=== PATIENT | male | born 1940 | race Caucasian/White ===

== ENCOUNTER → 2019-03-01 | Outpatient (CLI) | payer MEDICARE, BC ==
[2019-03-01 08:42] LABS: CREATININE 1.1 mg/dL (0.6-1.3)
== END ==
LOC: M.LAB 08:00 → M.CT 09:30
PROVIDERS: Nurse Practitioner Adult Health
DX: K80.20 Calculus of gallbladder without cholecystitis without obstruction (principal); K40.90 Unilateral inguinal hernia, without obstruction or gangrene, not specified as recurrent; K57.90 Diverticulosis of intestine, part unspecified, without perforation or abscess without bleeding; R14.0 Abdominal distension (gaseous)

== ENCOUNTER → 2019-06-03 | Outpatient (CLI) | payer MEDICARE, BC ==
[~2019-06-03] MED LIST: TYLENOL PO
--- NOTE | 2019-07-07 16:39 | PAINCON ---
[address] [address] PAIN MANAGEMENT CONSULTATION Name: SUSAN PATEL Room: [facility].#: [id number] Admission: 06/03/19 Attend Phys: Vandana Galeano MD Discharge: Date of : 40 Report #: [id number] THIS REPORT FOR: //name// CC: Osvaldo Napoles DATE OF SERVICE: 06/03/2019 CHIEF COMPLAINT: Pain in the low back that travels down both legs to the knee and down into the foot. HISTORY: The patient is a 78-year-old gentleman who has been referred to the Pain Clinic for evaluation of back and leg pain. The patient noted pain, which has been problematic for a number of years. He has been experiencing increasing pain in the lower portion of his back. Pain is exacerbated by walking as well as standing. Notes that his pain improves somewhat when he sits down. He has found improvement after taking a hot bath. Does note some improvement when he uses stretching machine as well as when he exercises. He describes it as throbbing, sharp, shooting pain, which causes cramping, aching, and pulling. He rates it as a 6/10 today. He has not had back surgery. He has perceived weakness in his legs. ALLERGIES: No known drug allergies. CURRENT MEDICATIONS: Tylenol 600 mg p.r.n. PAST MEDICAL HISTORY: Stomach problems, joint disease/arthritis. PAST SURGICAL HISTORY: The patient has not had surgery. SOCIAL HISTORY: He is retired. REVIEW OF SYSTEMS: Generally good health, earaches, chronic sinus problems, shortness of breath, joint pain, weakness of muscles, and back pain. LABORATORY DATA: MRI of the lumbar spine dated, 06/05/2001. IMPRESSION: Prominent degenerative changes at multiple lumbar levels. Prominent annular bulging of the disk demonstrated at L4-L5 with some resulting in compromise of the thecal sac and mild compromise of the neural foramen. PAIN CLINIC ASSESSMENT/PQRS: 1. History of osteoarthritis. The patient has some osteoarthritic changes in his low back area. He is not being treated for rheumatoid arthritis. 2. Height 5 feet 11 inches, weight 181 pounds, and BMI is 25.4[place] [address] PAIN MANAGEMENT CONSULTATION Name: SUSAN PATEL Room: [facility]#: [id number] Admission: 06/03/19 Attend Phys: Vandana Galeano MD Discharge: Date of : 40 Report #: [id number] 3. Vital signs: Blood pressure 130/64, heart rate 76, respiratory rate 16, room air saturation 94%, and temperature 97.9. 4. Pain intensity, 11/23. 5. Fall risk. The patient has not fallen in the last 3 months. 6. Blood thinner. The patient is not on a blood thinning medication. 7. Hypertension. The patient is not being treated for hypertension. 8. Opioids greater than 6 weeks. The patient is not receiving an opioid medication. 9. Risk assessment tool, low for opioids. 10. Functional assessment tool, 33/70. PHYSICAL EXAMINATION: GENERAL: The patient is a well-developed, well-nourished white male. Appears his stated age. He is alert and oriented x 3. His affect is appropriate. Speech is fluent. HEENT: Normocephalic, atraumatic. Extraocular eye muscles intact. Sclerae nonicteric. Mucous membranes moist. NECK: Without adenopathy. HEART: Regular rate. ABDOMEN: Nontender. LUNGS: Generally clear to auscultation. MUSCULOSKELETAL: The patient is without significant scoliosis, kyphosis or lordosis. The patient has pain and discomfort in lower portion of his back. Has pain that is radiating down into the left and right leg. It involves the L5-S1 dermatomal distribution. IMPRESSION: Lumbar radiculopathy, L4-L5 dermatomal distribution with bilateral pain. RECOMMENDATIONS: We discussed treatment options with the patient. Risks and benefits of an epidural steroid injection were discussed. Possible complications of the procedure, which could include but are not limited to infection, worsening pain, no improvement in pain, increased nerve damage and the patient elects to proceed. PROCEDURE NOTE: The patient was taken to the procedure area. He was then assisted in getting on examination table. His back was sterilely prepped with a Betadine solution. A 0.25% bupivacaine was infiltrated at the L5-S1 area. After this area had been anesthetized, a 17-gauge Tuohy with loss of resistance technique was used to gain access to the epidural space. A total of 80 mg Depo-Medrol, 40 mg triamcinolone and 2 mL of 0.25% bupivacaine was injected. The patient tolerated the procedure well. There were no complications. He remained in the pain clinic for an appropriate amount of time. He will follow up in [place] [address] PAIN MANAGEMENT CONSULTATION Name: SUSAN PATEL Room: [facility]#: [id number] Admission: 06/03/19 Attend Phys: Vandana Galeano MD Discharge: Date of : 40 Report #: [id number] We would like to thank you for letting us participate in his care. We hope he continues to improve. <ELECTRONICALLY SIGNED> By: Vandana Galeano MD 07/07/19 1639 1342 2215N. Jamil Galeano MD /nt
== END | disposition home or self-care (01) ==
LOC: M.PC 04:46
DX: M54.16 Radiculopathy, lumbar region (principal); M19.90 Unspecified osteoarthritis, unspecified site; Z79.899 Other long term (current) drug therapy

== ENCOUNTER 2019-07-29 09:22 | Inpatient (IN) | payer MEDICARE, BC ==
[~2019-07-29] VITALS: Ht 154.9 cm; Wt 83.2 kg
[2019-07-29 09:22] VITALS: BP 85/63
[2019-07-29 09:45] LABS: BE -14.1 mmol/L (-2 to +3); PCO2 27.8 mmHg (35.0-45.0)
[2019-07-29 09:46] LABS: ABSOLUTE BASOPHILS 0.1 thou/uL (0.0-0.2); ABSOLUTE EOSINOPHILS 0.3 thou/uL (0.0-0.7); ABSOLUTE LYMPHOCYTES 4.8 thou/uL (0.8-5.3); ABSOLUTE MONOCYTES 0.6 thou/uL (0.0-1.2); ABSOLUTE NEUTROPHILS 5.4 thou/uL (1.6-8.1); BASOPHILS 1.1 %; EOSINOPHILS 2.4 %; HEMATOCRIT 43.1 % (42.0-52.0); HEMOGLOBIN 14.5 gm/dL (14.0-18.0); LYMPHOCYTES 42.8 %; MCH 30.9 pg (26.0-34.0); MCHC 33.7 g/dL (28.0-37.0); MCV 91.9 fL (80.0-100.0); MONOCYTES 5.4 %; MPV 8.2 fl. (7.2-11.1); NUCLEATED RBCS 0 /100WBC; PLATELET COUNT* 178 thou/uL (150-400); POLYS 48.3 %; RDW-CV 14.4 % (10.5-14.5); WBC 11.2 thou/uL (4.0-11.0)
[2019-07-29 09:47] LABS: PO2 > 488.8 mmHg (75.0-100.0)
[2019-07-29 10:11] LABS: ALBUMIN 3.3 g/dL (3.4-5.0); CALCIUM 8.5 mg/dL (8.5-10.1); CREATININE 1.7 mg/dL (0.6-1.3); POTASSIUM 3.9 mmol/L (3.5-5.1); TOTAL BILIRUBIN 0.7 mg/dL (<0.1-1.0); TOTAL PROTEIN 7.3 g/dL (6.4-8.2)
[2019-07-29 10:12] LABS: INR 1.1; PROTIME 11.3 Seconds (9.20-11.50)
[2019-07-29 10:16] LABS: ALCOHOL < 10 mg/dL (<10); SALICYLATE < 2.8 mg/dL (2.8-20.0)
[2019-07-29 10:39] LABS: INFLUENZA A ANTIGEN Negative (Negative); INFLUENZA B ANTIGEN Negative (Negative)
--- NOTE | 2019-07-29 11:21 | EKG ---
[place] [address] ELECTROCARDIOGRAM REPORT Name: SUSAN PATEL Room: [facility]#: [id number] Admission: 07/29/19 Attend Phys: Discharge: Date of : 40 Date of Service: 07/29/19 0934 Report #: [id number] THIS REPORT FOR: cc: Osvaldo Mattson Bradley L. DO Holkins, John M. 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[facility] : 1940 Requested By: Susan Craven Order Number: [id number] MD: Bruce Snider Measurements Intervals [place] Rate: 111 P: 0 [place]: 108 QRS: 64 QRSD: 137 T: 23 QT: 456 QTc: 620 Interpretive Statements Sinus tachycardia Right bundle branch block No previous ECG available for comparison Electronically Signed On 07-29-2019 11:20:48 STEREOPTIC PROJECTION TOPOGRAPHER by Bruce Snider [email or web address] <ELECTRONICALLY SIGNED> By: Bruce Snider MD, [facility] 07/29/19 1120 0934 0934 Bruce Snider MD, [facility] /EPI
[2019-07-29 14:54] VITALS: BP 88/61
[2019-07-29 16:39] VITALS: BP 91/64
[2019-07-29 17:00] VITALS: BP 99/65
[2019-07-29 18:00] VITALS: BP 95/66
[2019-07-29 20:34] VITALS: BP 103/65
[2019-07-30] VITALS (11 sets, daily range): BP systolic 93–125; BP diastolic 58–74
--- NOTE | 2019-07-30 07:42 | CON ---
[facility] [address] [place] [address] CONSULTATION Name: SUSAN PATEL Room: [address] ADM IN M.R.#: [id number] Admission: 07/29/19 Attend Phys: Paula Hayward Discharge: Date of : 40 Report #: [id number] THIS REPORT FOR: //name// cc: Osvaldo Mattson Bradley L. DO ~ THIS REPORT FOR: //name// CC: Osvaldo Reynolds DATE OF SERVICE: 07/29/2019 CARDIOLOGY CONSULTATION INDICATION: Elevated troponin. HISTORY OF PRESENT ILLNESS: The patient is a very pleasant 78-year-old gentleman with no prior significant cardiac history. He was admitted to the hospital with complaints of acute shortness of breath and found to have a pulmonary embolus. In this setting has elevated troponin, likely due to cardiac strain. He denies any prior cardiac history. Essentially, he is a fairly healthy 78-year-old. There is no prior history of blood clots. He denies any history of hypertension, diabetes or family history of coronary artery disease. He reports borderline hyperlipidemia. He does not take any pharmaceutical medications. He takes quite a few supplements. He has not been on any long trips, plane rides or car trips. He reports some slight swelling of both lower extremities, left greater than right. He denies any pain in his legs. He reports this morning having acute shortness of breath. He was transported by EMS to the hospital and stabilized in the Emergency Room. A PE protocol CTA of the chest was obtained after he was noted to have an elevated D-dimer. This showed extensive pulmonary emboli and right heart strain. PAST MEDICAL HISTORY: Eye surgery remotely. MEDICATIONS: No pharmaceuticals currently. ALLERGIES: None documented. FAMILY HISTORY: Noncontributory. SOCIAL HISTORY: The patient is a lifelong nonsmoker. He does not drink alcohol. PHYSICAL EXAMINATION: [place] [address] CONSULTATION Name: SUSAN PATEL Room: [address] [facility]#: [id number] Admission: 07/29/19 Attend Phys: Paula Hayward Discharge: Date of : 40 Report #: [id number] VITAL SIGNS: Blood pressure 88/61, pulse of 105 and regular. GENERAL: This is a pleasant elderly gentleman who does not appear to be in any distress. Mood and affect appropriate. HEENT: Extraocular muscles intact. Mucous membranes moist. NECK: Shows no jugular venous distention. There are no carotid bruits. CHEST: Reveals clear lung bledsoe. CARDIOVASCULAR: Reveals a regular rhythm. I do not appreciate gallop or murmur. ABDOMEN: Reveals normal bowel sounds. The abdomen is soft, nontender. EXTREMITIES: Shows trace ankle edema bilaterally. There is no calf tenderness. SKIN: Dry. LABORATORY DATA: A 12-lead EKG shows sinus tachycardia with right bundle branch block. I do not appreciate acute ST or T-wave abnormality. CTA as outlined above shows extensive pulmonary emboli. Chest x-ray showed no acute cardiopulmonary process. Labs are evaluated. Electrolytes are within normal limits. BUN 18, creatinine 1.7, serum glucose 334. LFTs within normal limits. Troponin initially 0.19, subsequently 0.95 and 2.42. NT-proBNP 91. Coags within normal limits. White blood cell count 11.2, hemoglobin 14.5, platelet count 178,000. IMPRESSION AND RECOMMENDATIONS: 1. Extensive pulmonary emboli. The patient has currently been placed on Lovenox 1 mg subcutaneous b.i.d. Would transition to oral anticoagulant in the next day or so. Would recommend continuous anticoagulation for the next 3-6 months. At this time, the patient has had no prior episode of clotting. Further evaluation, likely not necessary. We will obtain echocardiogram to evaluate underlying cardiac structure and function. 2. Acute respiratory failure secondary to pulmonary emboli. 3. Elevated troponin secondary to heart strain consistent with a type 2 myocardial infarction. Consider outpatient stress testing once the patient has recovered from his pulmonary emboli. Echocardiogram ordered and pending. <ELECTRONICALLY SIGNED> By: Ata Cunningham MD, FACC 07/30/19 0742 1733 0508Ata Cunningham MD, FACC /nt
[2019-07-30 10:37] LABS: ABSOLUTE BASOPHILS 0.1 thou/uL (0.0-0.2); ABSOLUTE EOSINOPHILS 0.1 thou/uL (0.0-0.7); ABSOLUTE LYMPHOCYTES 1.7 thou/uL (0.8-5.3); ABSOLUTE MONOCYTES 0.6 thou/uL (0.0-1.2); ABSOLUTE NEUTROPHILS 5.9 thou/uL (1.6-8.1); BASOPHILS 0.8 %; EOSINOPHILS 0.6 %; HEMOGLOBIN 13.3 gm/dL (14.0-18.0); MCH 30.4 pg (26.0-34.0); MCHC 34.2 g/dL (28.0-37.0); MCV 89.1 fL (80.0-100.0); MONOCYTES 7.2 %; MPV 8.1 fl. (7.2-11.1); NUCLEATED RBCS 0 /100WBC; PLATELET COUNT* 149 thou/uL (150-400); POLYS 71.4 %; RBC 4.38 mil/uL (4.50-6.00); RDW-CV 14.2 % (10.5-14.5); WBC 8.3 thou/uL (4.0-11.0)
[2019-07-30 10:50] LABS: ALBUMIN 3.1 g/dL (3.4-5.0); CALCIUM 7.6 mg/dL (8.5-10.1); CREATININE 1.3 mg/dL (0.6-1.3); TOTAL BILIRUBIN 0.4 mg/dL (<0.1-1.0); TOTAL PROTEIN 6.6 g/dL (6.4-8.2)
[2019-07-30 10:56] LABS: INR 1.1; PROTIME 11.2 Seconds (9.20-11.50)
--- NOTE | 2019-07-30 12:20 | 2DMMODE ---
[place] [address] 2 D/M-MODE ECHOCARDIOGRAM Name: SUSAN PATEL Room: [address] ADM IN [facility]#: [id number] Admission: 07/29/19 Attend Phys: Alejandro Reynolds Discharge: Date of : 40 Date of Service: 07/30/19 1219 Report #: [id number] THIS REPORT FOR: cc: Osvaldo Mattson Bradley L. DO Holkins,Bruce Tesfaye MD [facility] ~ APPROVED REPORT Study performed: 07/30/2019 10:39:26 EXAM: Comprehensive 2D, Doppler, and color-flow Echocardiogram Patient Location: In-Patient Room #: 004 Status: routine BSA: 2.03 HR: 86 bpm BP: 103/74 mmHg Rhythm: NSR Other Information Study Quality: Good Indications Dyspnea 2D Dimensions IVSd: 8.64 (7-11mm) LVOT Diam: 23.40 (18-24mm) LVDd: 34.06 mm PWd: 8.42 (7-11mm) Ascending Ao: 35.13 (22-36mm) LVDs: 20.63 (25-40mm) Aortic Root: 34.20 mm Volumes Left Atrial Volume (Systole) LA ESV Index: 13.90 mL/m2 Aortic Valve AoV Peak Ra.: 1.18 m/s AO Peak Gr.: 5.57 mmHg LVOT Max P.26 mmHg AO Mean Gr.: 3.43 mmHg LVOT Mean P.79 mmHg LVOT Max V: 1.03 m/s AO V2 VTI: 17.44 cm LVOT Mean V: 0.60 m/s LOURDES (VTI): 4.75 cm2 LVOT V1 VTI: 19.28 [place] [address] 2 D/M-MODE ECHOCARDIOGRAM Name: SUSAN PATEL Room: [address] IN ..#: [id number] Admission: 07/29/19 Attend Phys: Alejandro Reynolds Discharge: Date of : 40 Date of Service: 07/30/19 1219 Report #: [id number] Mitral Valve E/A Ratio: 0.54 MV Decel. Time: 305.31 ms MV E Max Ra.: 0.50 m/s MV PHT: 88.54 ms MVA (PHT): 2.48 cm2 TDI E/Lateral E': 5.00 E/Medial E': 5.00 Medial E' Ra.: 0.10 m/s Lateral E' Ra.: 0.10 m/s Pulmonary Valve PV Peak Ra.: 0.75 m/s PV Peak Gr.: 2.22 mmHg Tricuspid Valve RAP Estimate: 15.00 mmHg TR Peak Gr.: 30.54 mmHg RVSP: 45.00 mmHg PA Pressure: 45.00 mmHg Left Ventricle The left ventricle is normal size. There is normal LV segmental wall motion. There is normal left ventricular wall thickness. Left ventricular systolic function is normal. The left ventricular ejection fraction is within the normal range. LVEF is 65%. Grade I - abnormal relaxation pattern. Right Ventricle Right ventricle is moderately dilated. The right ventricular systolic function is normal. Atria The left atrium size is normal. Right atrium is moderately dilated. Aortic Valve Mild aortic valve sclerosis. No aortic regurgitation is present. There is no aortic valvular stenosis. Mitral Valve The mitral valve is normal in structure. Trace mitral regurgitation. No evidence of mitral valve stenosis. Tricuspid Valve The tricuspid valve is normal in structure. Mild tricuspid regurgitation. Mild [place] [address] 2 D/M-MODE ECHOCARDIOGRAM Name: SUSAN PATEL Room: [address] IN [facility]#: [id number] Admission: 07/29/19 Attend Phys: Alejandro Reynolds Discharge: Date of : 40 Date of Service: 07/30/19 1219 Report #: [id number] Pulmonic Valve The pulmonary valve is normal in structure. There is no pulmonic valvular regurgitation. Great Vessels The aortic root is normal in size. IVC is dilated and collapses >50% with inspiration. Pericardium There is no pericardial effusion. <Conclusion> The left ventricle is normal size. There is normal left ventricular wall thickness. Left ventricular systolic function is normal. The left ventricular ejection fraction is within the normal range. LVEF is 65%. Grade I - abnormal relaxation pattern. Right ventricle is moderately dilated. The right ventricular systolic function is normal. The left atrium size is normal. Right atrium is moderately dilated. Mild aortic valve sclerosis. No aortic regurgitation is present. There is no aortic valvular stenosis. The mitral valve is normal in structure. The tricuspid valve is normal in structure. Mild tricuspid regurgitation. Mild pulmonary hypertension. IVC is dilated and collapses >50% with inspiration. There is no pericardial effusion. There is normal LV segmental wall motion. <ELECTRONICALLY SIGNED> By: Bruce Snider MD, FACC 07/30/19 1219 18 18 Bruce Snider MD, FACC /INF
[2019-07-31] VITALS (8 sets, daily range): BP systolic 100–137; BP diastolic 59–74
[2019-07-31 00:50] LABS: URINE BILIRUBIN NEGATIVE (Negative); URINE BLOOD 1+ (Negative); URINE CLARITY CLEAR; URINE COLOR YELLOW; URINE GLUCOSE-RANDOM NEGATIVE (Negative); URINE KETONES NEGATIVE (Negative); URINE LEUKOCYTES-REFLEX NEGATIVE (Negative); URINE NITRITE-REFLEX NEGATIVE (Negative); URINE PROTEIN NEGATIVE (Negative); URINE SPECIFIC GRAVITY >= 1.030 (1.005-1.030); URINE UROBILINOGEN 0.2 E.U./dl (0.2-1.0)
[2019-07-31 00:56] LABS: AMP/METHAMP Negative (Negative); BARBITURATES Negative (Negative); BENZODIAZEPINES Negative (Negative); COCAINE Negative (Negative); METHADONE Negative (Negative); OPIATES Negative (Negative); PCP Negative (Negative); THC Negative (Negative)
[2019-07-31 01:40] LABS: SQUAMOUS 4-10 Moderate /LPF (0-3)
[2019-07-31 01:41] LABS: CASTS None Seen /LPF (None Seen); URINE WBC-REFLEX 0-5 Rare /HPF (0-5)
[2019-07-31 01:42] LABS: BACTERIA-REFLEX 1-9 Few /HPF (None Seen); CRYSTALS None Seen /LPF (None Seen); URINE RBC 0-2 Rare /HPF (0-2)
[2019-07-31] MEDS ORDERED: MAGNESIUM400 MG PO (09:17)
[2019-07-31] MEDS ORDERED: SUPER B WITH V1 EAC1 PO (09:20)
[2019-07-31] MEDS ORDERED: VIT C-ROSE HIP500 MG PO (09:22)
[2019-07-31] MEDS ORDERED: GINGER ROOT550 MG PO (09:26)
[2019-07-31] MEDS ORDERED: CORAL COMPLEX PO (09:30)
[2019-07-31 20:02] LABS: URINE BILIRUBIN NEGATIVE (Negative); URINE BLOOD NEGATIVE (Negative); URINE CLARITY CLOUDY; URINE COLOR YELLOW; URINE GLUCOSE-RANDOM NEGATIVE (Negative); URINE KETONES NEGATIVE (Negative); URINE LEUKOCYTES-REFLEX NEGATIVE (Negative); URINE NITRITE-REFLEX NEGATIVE (Negative); URINE PROTEIN NEGATIVE (Negative); URINE SPECIFIC GRAVITY 1.025 (1.005-1.030); URINE UROBILINOGEN 0.2 E.U./dl (0.2-1.0)
[2019-07-31 20:09] LABS: SQUAMOUS 0-3 Few /LPF (0-3)
[2019-07-31 20:10] LABS: AMORPHOUS PHOSPHATES Many /LPF (None Seen); CASTS None Seen /LPF (None Seen); CRYSTALS None Seen /LPF (None Seen); MUCUS 0-3 Light strn/LPF (None Seen); URINE RBC 0-2 Rare /HPF (0-2); URINE WBC-REFLEX 0-5 Rare /HPF (0-5)
[2019-08-01 04:57] VITALS: BP 137/54
[2019-08-01 12:00] VITALS: BP 90/58
[2019-08-01 13:06] LABS: ABSOLUTE BASOPHILS 0.1 thou/uL (0.0-0.2); ABSOLUTE EOSINOPHILS 0.4 thou/uL (0.0-0.7); ABSOLUTE LYMPHOCYTES 1.5 thou/uL (0.8-5.3); ABSOLUTE MONOCYTES 0.5 thou/uL (0.0-1.2); EOSINOPHILS 4.8 %; HEMATOCRIT 37.3 % (42.0-52.0); LYMPHOCYTES 19.8 %; MCH 30.4 pg (26.0-34.0); MCHC 34.8 g/dL (28.0-37.0); MCV 87.3 fL (80.0-100.0); MONOCYTES 7.3 %; MPV 7.9 fl. (7.2-11.1); NUCLEATED RBCS 0 /100WBC; PLATELET COUNT* 202 thou/uL (150-400); POLYS 67.1 %; RBC 4.27 mil/uL (4.50-6.00); RDW-CV 14.1 % (10.5-14.5); WBC 7.5 thou/uL (4.0-11.0)
[2019-08-01 13:12] LABS: CALCIUM 8.2 mg/dL (8.5-10.1); POTASSIUM 3.5 mmol/L (3.5-5.1)
[2019-08-01] MEDS ORDERED: XARELTO15 MG PO (13:52)
[2019-08-01] MEDS ORDERED: CEFPODOXIME PR200 M1 PO (13:54)
== END 2019-08-01 15:36 | disposition home or self-care (01) | DRG 175 ==
LOC: M.ERS 09:22 → M.ICU 12:13 → M.TBA-ER 12:13 → M.ICU 15:01 → M.2W 07-30 15:31 → M.ORTHSURG 07-30 20:36 → M.2W 07-30 21:18
PROVIDERS: Emergency Medicine; Internal Medicine Cardiovascular Disease; ADMIT Internal Medicine
DX: I26.99 Other pulmonary embolism without acute cor pulmonale (principal); J96.00 Acute respiratory failure, unspecified whether with hypoxia or hypercapnia; E87.2 Acidosis; J98.11 Atelectasis; I82.413 Acute embolism and thrombosis of femoral vein, bilateral; I82.432 Acute embolism and thrombosis of left popliteal vein; I27.20 Pulmonary hypertension, unspecified; I82.462 Acute embolism and thrombosis of left calf muscular vein; I45.10 Unspecified right bundle-branch block; I08.2 Rheumatic disorders of both aortic and tricuspid valves; R50.9 Fever, unspecified; Z79.899 Other long term (current) drug therapy

== ENCOUNTER → 2019-11-16 | Outpatient (CLI) | payer MEDICARE, BC ==
[~2019-11-16] MED LIST changes: +CEFPODOXIME PR200 M1 PO; +CORAL COMPLEX PO; +GINGER ROOT550 MG PO; +MAGNESIUM400 MG PO; +SUPER B WITH V1 EAC1 PO; +VIT C-ROSE HIP500 MG PO; +XARELTO15 MG PO
--- NOTE | 2019-12-01 08:41 | PAINCON ---
[address] [address] PAIN MANAGEMENT CONSULTATION Name: SUSAN PATEL Room: [facility].#: [id number] Admission: 11/16/19 Attend Phys: Vandana Galeano MD Discharge: Date of : 40 Report #: [id number] THIS REPORT FOR: //name// cc: Osvaldo Mattson Bradley L. DO THIS REPORT FOR: //name// CC: Osvaldo Napoles DATE OF SERVICE: 11/16/2019 CHIEF COMPLAINT: Left knee pain and low back pain. HISTORY: The patient is a 79-year-old gentleman who has been seen in the pain clinic in the past because of pain, which radiates down into his legs and to his feet. He has continued to do the exercises as tolerated. He is contemplating a colonoscopy soon. He has been unable to walk very far without his "legs giving out." He has used Xarelto and has been taking Tylenol to help with the pain. ALLERGIES: No known drug allergies. CURRENT MEDICATIONS: Tylenol 600 mg, Xarelto, vitamin C, Gabriella Hips 500 mg, B-complex vitamins, modesta root 550 mg, magnesium 400 mg, and coral calcium complex. PAIN CLINIC ASSESSMENT/PQRS: 1. History of osteoarthritis. The patient has some osteoarthritic changes in his low back. He is not being treated for rheumatoid arthritis. 2. Height 5 feet 11 inches, weight 187 pounds, BMI is 25. 3. Vital Signs: Blood pressure 103/60, heart rate 68, respiratory rate 16, room air saturation 92%, temperature 98.6. 4. Pain intensity has been 6 in the past. 5. Fall risk. The patient has not fallen in the last 3 months. 6. Blood thinner. The patient is on a blood thinning medication, Xarelto. 7. Opioids greater than 6 weeks. The patient is not taking opioids. 8. Risk assessment tool, low for opioid use. 9. Functional assessment tool, reviewed. 10. Tobacco: The patient is not smoking. 11. Alcohol: The patient is not drinking alcohol. PHYSICAL EXAMINATION: GENERAL: The patient is a well-developed, well-nourished white male. Appears his stated age. He is alert and oriented x 3. His affect is appropriate. [place] [address] PAIN MANAGEMENT CONSULTATION Name: SUSAN PATEL Room: [facility]#: [id number] Admission: 11/16/19 Attend Phys: Vandana Galeano MD Discharge: Date of : 40 Report #: [id number] HEENT: Normocephalic, atraumatic. Extraocular eye muscles intact. Sclerae nonicteric. Mucous membranes are moist. NECK: Without adenopathy. HEART: Regular rate. ABDOMEN: Nontender. LUNGS: Generally clear. MUSCULOSKELETAL: The patient is without significant scoliosis, kyphosis, or lordosis. The patient has discomfort in lower portion of his back. Has pain that radiates down into his left and has radiated down to his right leg in the L5 dermatomal distribution. IMPRESSION: History of lumbar radiculopathy. RECOMMENDATIONS: We have discussed the treatment options with the patient. At this point, he has taken his Xarelto 1 day ago. He is considering a colonoscopy, which is upcoming. We explained to the patient that steroids prior to colonoscopy might not be a good idea. We will wait until the patient has undergone a colonoscopy and has had an adequate amount of time to stop his Xarelto. He was then returned to the Pain Clinic, at which time we would then consider an epidural steroid injection. Questions were sought and answered. We would like to thank you for letting us participate in his care. We hope he continues to improve. <ELECTRONICALLY SIGNED> By: Vandana Galeano MD 12/01/19 0841 2157 0341Cody. Jamil Galeano MD /DEMETRIO
== END ==
LOC: M.PC 04:52
PROVIDERS: ATTEND Anesthesiology Pain Medicine
DX: M54.5 Low back pain (principal); M25.562 Pain in left knee; Z87.39 Personal history of other diseases of the musculoskeletal system and connective tissue; Z79.899 Other long term (current) drug therapy

== ENCOUNTER → 2019-11-19 | Outpatient (CLI) | payer MEDICARE, BC | LOC: M.LAB 09:30 | PROVIDERS: ATTEND Internal Medicine Gastroenterology | DX: Z01.812 Encounter for preprocedural laboratory examination (principal); Z86.010 Personal history of colon polyps ==

== ENCOUNTER → 2020-07-06 | Outpatient (CLI) | payer MEDICARE, BC | LOC: M.PC 11:20 | PROVIDERS: ATTEND Anesthesiology Pain Medicine | DX: M54.9 Dorsalgia, unspecified (principal); Z87.39 Personal history of other diseases of the musculoskeletal system and connective tissue; Z86.711 Personal history of pulmonary embolism; Z96.652 Presence of left artificial knee joint; F17.200 Nicotine dependence, unspecified, uncomplicated ==

== ENCOUNTER → 2020-07-20 | Outpatient (CLI) | payer MEDICARE, BC | END | disposition home or self-care (01) | LOC: M.PC 09:00 | PROVIDERS: ATTEND Anesthesiology Pain Medicine | DX: M54.16 Radiculopathy, lumbar region (principal); M48.061 Spinal stenosis, lumbar region without neurogenic claudication; G89.29 Other chronic pain; Z96.652 Presence of left artificial knee joint; Z86.711 Personal history of pulmonary embolism; Z79.01 Long term (current) use of anticoagulants; Z90.49 Acquired absence of other specified parts of digestive tract; Z98.890 Other specified postprocedural states ==

== ENCOUNTER → 2020-10-31 | Outpatient (CLI) | payer MEDICARE, BC | END | disposition home or self-care (01) | LOC: M.PC 10:00 | PROVIDERS: ATTEND Anesthesiology Pain Medicine | DX: M47.816 Spondylosis without myelopathy or radiculopathy, lumbar region (principal); M51.16 Intervertebral disc disorders with radiculopathy, lumbar region; M48.061 Spinal stenosis, lumbar region without neurogenic claudication; G89.29 Other chronic pain; Z98.890 Other specified postprocedural states; Z79.899 Other long term (current) drug therapy; Z79.01 Long term (current) use of anticoagulants; Z96.652 Presence of left artificial knee joint; Z90.49 Acquired absence of other specified parts of digestive tract; Z86.711 Personal history of pulmonary embolism ==

== ENCOUNTER 2020-11-10 18:29 | Inpatient (IN) | payer MEDICARE, BC ==
[~2020-11-10] VITALS: Ht 180.3 cm; Wt 86.8 kg
[2020-11-10 18:30] VITALS: BP 132/85
[2020-11-10 18:55] LABS: ABSOLUTE BASOPHILS 0.1 thou/uL (0.0-0.2); ABSOLUTE LYMPHOCYTES 0.7 thou/uL (0.8-5.3); ABSOLUTE MONOCYTES 0.8 thou/uL (0.0-1.2); ABSOLUTE NEUTROPHILS 3.6 thou/uL (1.6-8.1); EOSINOPHILS 0.3 %; HEMATOCRIT 43.1 % (42.0-52.0); HEMOGLOBIN 15.1 gm/dL (14.0-18.0); LYMPHOCYTES 13.3 %; MCH 31.6 pg (26.0-34.0); MCHC 35.1 g/dL (28.0-37.0); MCV 90.2 fL (80.0-100.0); MONOCYTES 15.9 %; MPV 7.2 fl. (7.2-11.1); NUCLEATED RBCS 0 /100WBC; PLATELET COUNT* 227 thou/uL (150-400); POLYS 69.5 %; RBC 4.78 mil/uL (4.50-6.00); RDW-CV 13.3 % (10.5-14.5); WBC 5.2 thou/uL (4.0-11.0)
[2020-11-10 19:04] LABS: CALCIUM 8.5 mg/dL (8.5-10.1); CREATININE 1.2 mg/dL (0.6-1.3); POTASSIUM 4.1 mmol/L (3.5-5.1)
[2020-11-10 19:07] LABS: PROTIME 10.9 Seconds (9.20-11.50)
[2020-11-10 19:08] LABS: ALBUMIN 3.9 g/dL (3.4-5.0); TOTAL BILIRUBIN 0.3 mg/dL (<0.1-1.0); TOTAL PROTEIN 7.6 g/dL (6.4-8.2)
[2020-11-10 19:48] LABS: URINE BILIRUBIN NEGATIVE (Negative); URINE BLOOD NEGATIVE (Negative); URINE CLARITY CLEAR; URINE COLOR YELLOW; URINE GLUCOSE-RANDOM NEGATIVE (Negative); URINE KETONES NEGATIVE (Negative); URINE LEUKOCYTES-REFLEX NEGATIVE (Negative); URINE NITRITE-REFLEX NEGATIVE (Negative); URINE PROTEIN NEGATIVE (Negative); URINE SPECIFIC GRAVITY 1.025 (1.005-1.030); URINE UROBILINOGEN 0.2 E.U./dl (0.2-1.0)
[2020-11-10 23:34] VITALS: BP 107/71
[2020-11-11 03:44] VITALS: BP 100/70
--- NOTE | 2020-11-11 10:22 | EKG ---
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 : 1940 Requested By: Charan Vides Order Number: [id number] MD: Shekhar Prince Measurements Intervals [place] Rate: 94 P: 41 [place]: 172 QRS: 34 QRSD: 86 T: 44 QT: 331 QTc: 414 Interpretive Statements Sinus rhythm Low voltage, extremity and precordial leads Abnormal R-wave progression, early transition Baseline wander in lead(s) II,III,aVF Compared to ECG 07/29/2019 09:34:26 Sinus tachycardia no longer present Electronically Signed On 11-11-2020 10:22:21 CDT by Shekhar Prince [email or web address] <ELECTRONICALLY SIGNED> By: Shekhar Prince MD, [facility] 11/11/20 1022 1854 1854 Shekhar Prince MD, [facility] /EPI
[2020-11-11 11:35] LABS: ALBUMIN 3.5 g/dL (3.4-5.0); POTASSIUM 3.9 mmol/L (3.5-5.1); TOTAL BILIRUBIN 0.6 mg/dL (<0.1-1.0); TOTAL PROTEIN 6.8 g/dL (6.4-8.2)
[2020-11-11 12:00] VITALS: BP 124/71
[2020-11-11 16:00] VITALS: BP 116/67
[2020-11-11 20:00] VITALS: BP 117/77
[2020-11-12 00:08] VITALS: BP 116/68
[2020-11-12 03:57] VITALS: BP 102/67
[2020-11-12 04:24] LABS: ABSOLUTE LYMPHOCYTES 1.2 thou/uL (0.8-5.3); ABSOLUTE MONOCYTES 0.7 thou/uL (0.0-1.2); ABSOLUTE NEUTROPHILS 3.6 thou/uL (1.6-8.1); BASOPHILS 0.6 %; EOSINOPHILS 0.1 %; HEMATOCRIT 41.4 % (42.0-52.0); HEMOGLOBIN 14.5 gm/dL (14.0-18.0); LYMPHOCYTES 21.7 %; MCH 31.5 pg (26.0-34.0); MCHC 35.1 g/dL (28.0-37.0); MCV 89.8 fL (80.0-100.0); MONOCYTES 12.7 %; MPV 7.5 fl. (7.2-11.1); NUCLEATED RBCS 0 /100WBC; PLATELET COUNT* 200 thou/uL (150-400); POLYS 64.9 %; RBC 4.61 mil/uL (4.50-6.00); RDW-CV 13.4 % (10.5-14.5); WBC 5.5 thou/uL (4.0-11.0)
[2020-11-12 04:39] LABS: POTASSIUM 3.8 mmol/L (3.5-5.1)
[2020-11-12 04:51] LABS: CHOLESTEROL 154 mg/dL (<200); HDL CHOLESTEROL 49 mg/dL (>40); LDL CHOLESTEROL 91 mg/dL (<100); SERUM ASSESSMENT CLEAR; TC:HDL 3.1 Ratio (Not establshd); TRIGLYCERIDE 71 mg/dL (<150); VLDL 14 mg/dL (<40)
[2020-11-12 05:36] LABS: GLYCOHEMOGLOBIN (HGB A1C) 5.7 % (4.8-5.6)
[2020-11-12 08:01] VITALS: BP 99/58
[2020-11-12 12:00] VITALS: BP 104/68
[2020-11-12 16:00] VITALS: BP 98/72
[2020-11-12 20:00] VITALS: BP 114/71
[2020-11-13 00:20] VITALS: BP 103/60
[2020-11-13 04:35] VITALS: BP 101/65
[2020-11-13 08:04] VITALS: BP 89/49
[2020-11-13 12:00] VITALS: BP 102/71
--- NOTE | 2020-11-13 22:26 | CON ---
[address] [address] CONSULTATION Name: SUSAN PATEL Room: [address] IN M.R.#: [id number] Admission: 11/11/20 Attend Phys: Paula Cameron Discharge: 11/13/20 Date of : 40 Report #: [id number] THIS REPORT FOR: cc: Osvaldo Mattson Bradley L. DO Khosla, Parveen K. MD ~ DOC #: [id number] Krishan Reed MD DATE OF CONSULTATION: 11/11/2020 HISTORY OF PRESENT ILLNESS: This is an 80-year-old male patient whose consultation was kindly requested by Dr. Ly. I called Dr. Ly and talked to him. I talked to the nurse looking after this patient. I tried to get some good history from this patient. He is a pretty reluctant historian. He tells me he is going home, it does not matter what tomorrow. He said I fell because I lost my balance. He said he has done it before and it is not a big deal. He is sure that he did not pass out. I reviewed his old records and I reviewed the record from emergency room. It looks like he was admitted here with a pulmonary embolus and in the emergency room he had CT angiogram, which appear mostly negative. He does not believe that he has any other medical condition and in fact he does not believe he has any condition. REVIEW OF SYSTEMS: A 14-point review of system was carried out. The patient is a reluctant historian. The best I can tell, he is not complaining of any eye, ENT, cardiac, respiratory, GI, , musculoskeletal, constitutional, dermatological, hematological, psychiatric, throat or allergic symptom associated with present symptomatology. He has a history of pulmonary embolus. All the records indicate that he came with weakness, he denies that. He had a CTA of the head and neck in emergency room and that was mostly unremarkable. PAST MEDICAL HISTORY: Positive for a pulmonary embolus for which he is on anticoagulation. FAMILY HISTORY: Unremarkable according to him. SOCIAL HISTORY: He says he does not drink alcohol at all. PHYSICAL EXAMINATION: He is alert. He is responsive. He is pretty uncooperative with examination because he wants to go home. He was able to tell me what month it is. He did not tell me what date it is. He knew what hospital he is in. He knew who the president was. His cranial nerve examination, he has some condition in the right eye, but he did not tell me what it is, but otherwise looks unremarkable to me. He moves all four [place] [address] CONSULTATION Name: PATELSUSAN MOORE Room: [address] IN M.R.#: [id number] Admission: 11/11/20 Attend Phys: Paula Cameron Discharge: 11/13/20 Date of : 40 Report #: [id number] position sense is intact. His left knee looks like had surgery. His right knee jerk is present. I can do any further testing to see if he has grade 3,4 or 5 strength, but he moves all 4 extremities. There is no meningeal sign. I would not cooperate with the fundus examination or cerebellar sign. This is a well-developed individual. He has no thyroid mass. There is no carotid bruit. His sodium is trace low at 131. His Blood pressure is 67, pulse is 86 and temperature is 99.4. His urinalysis is unremarkable and I was concerned with this patient, so I got a stat MRI done since CT was unremarkable. That MRI does not appear to be showing any abnormality which can explain the patient's symptoms. Next step is doing a spinal tap, which is not possible at the moment because he is on Xarelto, but that question is redundant because he says he will not let me do. I had talked to his significant other earlier, I will talk to them again. I think that the next step if he let us evaluate him, I will order PT and OT in the meantime. I spent more than 50 minutes of time taking care of this patient today and majority was spent counseling, coordinating and reviewing his studies. MD MAGGI Rey/KEN/BETHANIE <ELECTRONICALLY SIGNED> By: Krishan Reed MD 11/13/20 2226 1719 2349Krishan Reed MD /nt
--- NOTE | 2020-11-13 22:26 | EEG ---
[address] [address] EEG STUDY REPORT Name: SUSAN PATEL Room: [address] IN M.R.#: [id number] Admission: 11/11/20 Attend Phys: Paula Cameron Discharge: 11/13/20 Date of : 40 Report #: [id number] THIS REPORT FOR: cc: Osvaldo Mattson Bradley L. DO Khosla, Parveen K. MD ~ DOC #: [id number] Krishan Reed MD DATE OF SERVICE: 11/11/2020 This patient is being evaluated for altered mental status. EEG was done by placing the electrode by standard 10-20 system of electrode placement. Both differential and sequential montages were used for recording. Background activity in this patient's EEG is about 8 Hz and 30 microvolts. It is a poorly formed background activity because it is intermixed with theta range slowing on both sides. Photic stimulation is unremarkable. Throughout the record, no active epileptiform activity was noticed. IMPRESSION: This is an abnormal EEG because it is intermixed with theta range slowing on both sides. That is a nonspecific abnormality, which can occur with encephalopathy effect of psychotropic medication, dementia, etc. Clinical correlation is recommended. MD MAGGI Rey/SEVERO <ELECTRONICALLY SIGNED> By: Krishan Reed MD 11/13/20 2226 1750 [id number] Reed MD /nt
== END 2020-11-13 16:41 | disposition left against medical advice (07) | DRG 640 ==
LOC: M.ERS 18:29 → M.TBA-ER 21:59 → M.2W 22:37
PROVIDERS: Emergency Medicine; Family Medicine; Internal Medicine; ADMIT Internal Medicine; ATTEND Internal Medicine
DX: E87.1 Hypo-osmolality and hyponatremia (principal); G93.41 Metabolic encephalopathy; Z53.21 Procedure and treatment not carried out due to patient leaving prior to being seen by health care provider; Z20.822 Contact with and (suspected) exposure to COVID-19; Z90.49 Acquired absence of other specified parts of digestive tract; Z79.01 Long term (current) use of anticoagulants; Z79.899 Other long term (current) drug therapy; Z86.718 Personal history of other venous thrombosis and embolism; Z86.711 Personal history of pulmonary embolism

== ENCOUNTER 2021-03-23 18:53 | Inpatient (IN) | payer MEDICARE, BC ==
[~2021-03-23] VITALS: Ht 180.3 cm; Wt 79.4 kg
[2021-03-23 18:57] VITALS: BP 100/71
[2021-03-23 19:34] LABS: ABSOLUTE BASOPHILS 0.1 thou/uL (0.0-0.2); ABSOLUTE LYMPHOCYTES 1.2 thou/uL (0.8-5.3); ABSOLUTE MONOCYTES 0.7 thou/uL (0.0-1.2); ABSOLUTE NEUTROPHILS 7.1 thou/uL (1.6-8.1); BASOPHILS 0.9 %; EOSINOPHILS 0.2 %; HEMATOCRIT 42.1 % (42.0-52.0); HEMOGLOBIN 14.8 gm/dL (14.0-18.0); LYMPHOCYTES 13.1 %; MCH 31.4 pg (26.0-34.0); MCHC 35.1 g/dL (28.0-37.0); MCV 89.3 fL (80.0-100.0); MONOCYTES 7.7 %; MPV 7.3 fl. (7.2-11.1); NUCLEATED RBCS 0 /100WBC; PLATELET COUNT* 238 thou/uL (150-400); POLYS 78.1 %; RBC 4.71 mil/uL (4.50-6.00); RDW-CV 13.7 % (10.5-14.5); WBC 9.1 thou/uL (4.0-11.0)
[2021-03-23 19:49] LABS: CALCIUM 8.6 mg/dL (8.5-10.1); CREATININE 1.1 mg/dL (0.6-1.3); POTASSIUM 3.8 mmol/L (3.5-5.1)
[2021-03-23 19:59] LABS: ALBUMIN 3.5 g/dL (3.4-5.0); MAGNESIUM 2.1 mg/dL (1.8-2.4); TOTAL BILIRUBIN 0.8 mg/dL (<0.1-1.0); TOTAL PROTEIN 7.2 g/dL (6.4-8.2)
[2021-03-23 21:25] VITALS: BP 113/51
[2021-03-23 22:42] VITALS: BP 121/72
[2021-03-23 23:46] LABS: URINE BILIRUBIN NEGATIVE (Negative); URINE BLOOD NEGATIVE (Negative); URINE CLARITY CLEAR; URINE COLOR YELLOW; URINE GLUCOSE-RANDOM NEGATIVE (Negative); URINE KETONES NEGATIVE (Negative); URINE LEUKOCYTES-REFLEX NEGATIVE (Negative); URINE NITRITE-REFLEX NEGATIVE (Negative); URINE PROTEIN NEGATIVE (Negative); URINE UROBILINOGEN 0.2 E.U./dl (0.2-1.0)
[2021-03-24 04:30] VITALS: BP 103/63
[2021-03-24 09:00] VITALS: BP 99/62
[2021-03-24 11:03] LABS: CALCIUM 8.5 mg/dL (8.5-10.1); CREATININE 1.1 mg/dL (0.6-1.3); POTASSIUM 3.7 mmol/L (3.5-5.1)
[2021-03-24 11:06] LABS: PHOSPHORUS* 2.4 mg/dL (2.5-4.9)
--- NOTE | 2021-03-24 12:52 | EKG ---
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
[2021-03-24 15:42] VITALS: BP 101/69
[2021-03-24 19:40] VITALS: BP 107/62
[2021-03-25 00:27] VITALS: BP 114/69
[2021-03-25 07:56] VITALS: BP 105/68
--- NOTE | 2021-03-25 16:57 | CON ---
[address] [address] CONSULTATION Name: SUSAN PATEL Room: [address] IN M.R.#: [id number] Admission: 03/24/21 Attend Phys: Marline Sylvester MD Discharge: Date of : 40 Report #: [id number] THIS REPORT FOR: cc: Osvaldo Mattson Bradley L. DO [place], Roxane S. DO ~ DATE OF CONSULTATION: 03/25/2021 NEUROLOGY CONSULT HISTORY OF PRESENT ILLNESS: The patient is an 80-year-old male who tells me that he was admitted to the hospital after falling 3 times at home. When he called EMS to pick him up again, the patient tells me that they told him they would not come again unless he went to the hospital to be evaluated. The patient tells me that he has a history of low back surgery and that the MRIs are here at this facility. He also told me that he saw Dr. Dash and spoke about Dr. Dash as though he were the surgeon. To my knowledge, Dr. Dash is the neckties painter. The patient tells me that he has back pain sometimes when he walks, he does not have back pain lying in bed or sitting up. He tells me he feels as though he has no balance. He denies numbness or tingling in his feet. He does not drink alcohol. The patient told me that he has an intermittent tremor of the right hand. He mostly notices this when he uses the walker. He is able to stop the tremor by holding on to the walker tighter or by straightening out his hand and willing his hand to stop shaking. The patient also told me that he was supposed to see a neurologist, but decided that he did not need to go and so he did not keep the appointment. Reading the information from the chart, the patient complained of weakness that began one month ago and has gotten progressively worse. Today, on the day of admission, he was unable to get up. He has no difficulty with appetite and no difficulty with bowel or bladder function. PAST MEDICAL HISTORY: Pulmonary embolus. PAST SURGICAL HISTORY: Left knee surgery, hernia repair, cholecystectomy, low back surgery performed approximately 2 months ago. MEDICATIONS: At home Xarelto 15 mg daily. In the hospital, the patient is prescribed only p.r.n. medications including Tylenol, magnesium, phosphorus, [place] [address] CONSULTATION Name: SUSAN PATEL Room: [address]#: [id number] Admission: 03/24/21 Attend Phys: Marline Sylvester MD Discharge: Date of : 40 Report #: [id number] ALLERGIES: None. VITAL SIGNS: Temperature 36.5, pulse rate 79, respiratory rate 17, blood pressure 105/68, bedside pulse oximetry 94% on room air. LABORATORY DATA: Hematology: White blood cell count 9.1, hemoglobin 14.8, hematocrit 42.1, MCV 89.3, platelet count 238,000. Urinalysis negative. Chemistry: Sodium 135, potassium 3.5, chloride 102, carbon dioxide 23, BUN 15, creatinine 1.1, GFR 64, glucose 168, lactic acid 1.2, calcium 8.5, phosphorus 2.4, magnesium 2, total bilirubin 0.8, AST 15, ALT 19, alkaline phosphatase 73, BNP 299, total protein 7.2, albumin 3.5. Serology: COVID negative. IMAGING DATA: Chest x-ray: No acute radiographic abnormality in the chest. NEUROLOGIC EXAM: Cranial nerves 2-12 are grossly intact. Motor exam demonstrates normal strength in the upper and lower extremities. There is mild rigidity in the right upper extremity. Reflexes are 2/4 in the upper extremities, 2/4 at the right knee, trace at the left knee. Ankle reflexes are absent. Plantar responses are flexor. Coordination reveals intact [id number]. Gait was tested. With a gait belt and the nurse and a nurse's radiology physician assistant, he was able to walk with a walker. His posture was stooped forward. At times, he was able to push the walker very quickly and left with the nurses when he did that. While he was walking and holding on to the walker, there was an intermittent tremor of the right hand. When this occurred, he stopped the walker and said "I can make this tremor stop" and held out his hand and the tremor stopped. When his arms were out in front of him, there was no tremor. IMPRESSION: The patient may have Parkinson's disease. I was able to speak with his lifetime partner, Angela Vines who told me that after back surgery the patient was doing very well. He would stand up and show everyone how well he could walk; however, a month ago, he began to develop a tremor in his right hand, she noticed that whenever he would drive and put his hand on the steering wheel, sometimes she would also notice it when it was sitting in his lap. He would tell her the same thing he told me, "when I hold out my hand, I can make it stop." She tells me that they both thought that perhaps this was Parkinson's disease and he does have an appointment to see a neurologist but the appointment is in August. I also questioned the patient's memory. I will order speech therapy for a cognitive assessment tomorrow. I will order a CT scan of the head along with B12 and TSH. This is being done to look for other causes of memory difficulty and to look for treatable causes of memory difficulty. Reviewing the patient's lab work, I also see that his blood sugar is elevated [facility] [address] [place] [address] CONSULTATION Name: PATELUSSAN TERESA Room: [address] IN [facility].#: [id number] Admission: 03/24/21 Attend Phys: Marline Sylvester MD Discharge: Date of : 40 Report #: [id number] and will order a hemoglobin A1c. For a possible diagnosis of Parkinson's disease, a trial of Sinemet 10/100 b.i.d. for 1 week and then t.i.d. for one week can be considered. Another option would be to send the patient for a DATscan, which can be done as an outpatient. To my knowledge, the DATscan is offered at [facility] as the closest location. It may also be at [facility] but I am not certain about that. The patient appears to have very good strength in his legs, so he may not require imaging of the spine; however, because he is having generalized weakness I do think a CT scan of the lumbar spine should be considered. I thank you for your kind referral of the patient. As of Jose Eduardo morning, [facility] will be covering the patient. <ELECTRONICALLY SIGNED> By: Emelina Birmingham DO 03/25/21 1657 1043 1221Rmarkus Birmingham DO /nt
[2021-03-25 19:30] VITALS: BP 100/60
[2021-03-26 03:06] LABS: GLYCOHEMOGLOBIN (HGB A1C) 5.7 % (4.8-5.6)
[2021-03-26 08:00] VITALS: BP 109/71
[2021-03-26 12:20] VITALS: BP 109/71
[2021-03-26 15:57] VITALS: BP 109/71
== END 2021-03-26 16:30 | disposition home or self-care (01) | DRG 74 ==
LOC: M.ERS 18:53 → M.TBA-ER 20:41 → M.3W 22:00
PROVIDERS: Emergency Medicine; Internal Medicine; Psychiatry & Neurology Neurology; ADMIT Family Medicine; ATTEND Family Medicine
DX: G62.89 Other specified polyneuropathies (principal); G81.91 Hemiplegia, unspecified affecting right dominant side; B34.9 Viral infection, unspecified; Z20.822 Contact with and (suspected) exposure to COVID-19; G89.18 Other acute postprocedural pain; Z90.49 Acquired absence of other specified parts of digestive tract